=== PATIENT | male | born 1935 | race Caucasian/White ===

== ENCOUNTER → 2016-08-15 20:07 | Outpatient (CLI) | payer MEDICARE, OTHER ==
[2012-12-06] VITALS: BMI 32.5
== END | disposition home or self-care (01) ==
LOC: D.SLEEP 08-13 20:00
DX: G47.33 Obstructive sleep apnea (adult) (pediatric) (principal)

== ENCOUNTER → 2017-01-06 10:55 | Outpatient (CLI) | payer MEDICARE, OTHER ==
[2012-12-06] VITALS: BMI 32.5
[2017-01-06 11:57] LABS: BASOPHILS 0.3 % (0-2); IMMATURE GRANULOCYTES 0.2 % (0-5); LYMPHOCYTES 22.9 % (15-50); MCH 30.1 pg (26.0-34.0); MCHC 34.1 g/dL (31.0-37.0); MCV 88.4 fL (80.0-100.0); MEAN PLATELET VOLUME 9.5 fL (7.4-10.4); MONOCYTES 8.1 % (2-11); NEUTROPHILS 59.5 % (40-80); PLATELET COUNT 169 10x3/uL (130-400); RBC 4.98 10x6/uL (4.20-6.10); RDW 13.9 % (11.5-14.5); WBC 6.6 10x3/uL (4.8-10.8)
[2017-01-06 12:31] LABS: ALBUMIN 3.9 g/dL (3.4-5.0); ANION GAP 9.7 mmol/L (8-16); BILIRUBIN - TOTAL 0.71 mg/dL (0.2-1.3); CALCIUM 9.6 mg/dL (8.5-10.1); CARBON DIOXIDE 29.1 mmol/L (21.0-32.0); CHOL - HDL RATIO 3.6 ratio (2.3-4.9); CREATININE - SERUM 1.5 mg/dL (0.6-1.3); LDL-HDL RATIO 2.2 ratio (1.5-3.5); POTASSIUM - SERUM 3.8 mmol/L (3.5-5.1); PROTEIN - SERUM 7.6 g/dL (6.4-8.2); SCREENING PSA (YEARLY) 4.54 ng/mL (0.00-4.00)
== END | disposition home or self-care (01) ==
LOC: D.LAB 10:55
PROVIDERS: Family Medicine
DX: Z00.00 Encounter for general adult medical examination without abnormal findings (principal); I10 Essential (primary) hypertension; E11.9 Type 2 diabetes mellitus without complications; N40.0 Benign prostatic hyperplasia without lower urinary tract symptoms

== ENCOUNTER → 2017-08-29 08:59 | Outpatient (CLI) | payer MEDICARE, OTHER ==
[2012-12-06] VITALS: BMI 32.5
[2017-08-29 09:22] LABS: BASOPHILS 0.2 % (0-2); EOSINOPHILS 6.3 % (0-7); HEMATOCRIT 44.6 % (42.0-54.0); HEMOGLOBIN 15.2 g/dL (13.5-17.5); IMMATURE GRANULOCYTES 0.2 % (0-5); LYMPHOCYTES 15.9 % (15-50); MCHC 34.1 g/dL (31.0-37.0); MCV 88.1 fL (80.0-100.0); MONOCYTES 7.6 % (2-11); NEUTROPHILS 69.8 % (40-80); PLATELET COUNT 189 10x3/uL (130-400); RBC 5.06 10x6/uL (4.20-6.10); RDW 13.7 % (11.5-14.5); WBC 8.9 10x3/uL (4.8-10.8)
[2017-08-29 09:32] LABS: HEMOGLOBIN A1C 6.2 % (4.8-6.0)
[2017-08-29 09:50] LABS: ANION GAP 9.8 mmol/L (8-16); BILIRUBIN - TOTAL 0.49 mg/dL (0.2-1.3); CALCIUM 9.8 mg/dL (8.5-10.1); CARBON DIOXIDE 30.9 mmol/L (21.0-32.0); CREATININE - SERUM 1.7 mg/dL (0.6-1.3); POTASSIUM - SERUM 3.7 mmol/L (3.5-5.1); PROTEIN - SERUM 7.8 g/dL (6.4-8.2)
[2017-08-29 09:51] LABS: SCREENING PSA (YEARLY) 7.81 ng/mL (0.00-4.00)
== END | disposition home or self-care (01) ==
LOC: D.LAB 08:59
PROVIDERS: Family Medicine
DX: Z00.00 Encounter for general adult medical examination without abnormal findings (principal); E11.9 Type 2 diabetes mellitus without complications; Z12.5 Encounter for screening for malignant neoplasm of prostate

== ENCOUNTER → 2017-11-25 09:17 | Outpatient (CLI) | payer MEDICARE, OTHER ==
[2012-12-06] VITALS: BMI 32.5
[2017-11-25 09:42] LABS: BASOPHILS 0.2 % (0-2); EOSINOPHILS 6.2 % (0-7); HEMATOCRIT 41.2 % (42.0-54.0); HEMOGLOBIN 14.4 g/dL (13.5-17.5); IMMATURE GRANULOCYTES 0.1 % (0-5); LYMPHOCYTES 13.3 % (15-50); MCH 30.4 pg (26.0-34.0); MCV 87.1 fL (80.0-100.0); MEAN PLATELET VOLUME 8.6 fL (7.4-10.4); MONOCYTES 7.5 % (2-11); NEUTROPHILS 72.7 % (40-80); PLATELET COUNT 166 10x3/uL (130-400); RBC 4.73 10x6/uL (4.20-6.10); RDW 13.9 % (11.5-14.5); WBC 9.3 10x3/uL (4.8-10.8)
[2017-11-25 10:08] LABS: ANION GAP 10.8 mmol/L (8-16); CARBON DIOXIDE 29.2 mmol/L (21.0-32.0); CREATININE - SERUM 1.7 mg/dL (0.6-1.3)
== END | disposition home or self-care (01) ==
LOC: D.LAB 09:15
PROVIDERS: Family Medicine
DX: N19 Unspecified kidney failure (principal); E11.9 Type 2 diabetes mellitus without complications

== ENCOUNTER → 2018-12-06 12:47 | Outpatient (CLI) | payer MEDICARE, OTHER ==
[2012-12-06] VITALS: BMI 32.5
--- NOTE | ~2018-12-06 | EC ---
PATIENT:CHRISSIE RAO DATE OF SERVICE: 12/06/18 SEX: M MEDICAL RECORD: [id number] DATE OF : 37 LOCATION:D.FORMERLY [facility] AGE OF PATIENT: 83 ADMISSION DATE: 12/06/18 REFERRING PHYSICIAN: INTERPRETING PHYSICIAN: DANA VAZ MD ECHOCARDIOGRAM REPORT ECHO CHARGES 4 ECHO COMPLETE Date: 12/06/18 CLINICAL DIAGNOSIS: AFIB, HX OF PERICARDIAL EFFUSION ECHOCARDIOGRAPHIC MEASUREMENTS (adult normal given) AC root (d.<3.7cm) 3.2 cm LV Septum d (<1.2 cm> 1.6 cm Valve Excursion 1.8 cm LV Septum (systole) 2.0 cm Left Atria (s.<4.0cm> 4.8 cm LVPW d(<1.2cm) 1.5 cm RV (d.<2.3cm) 3.9 cm LVPW (sytole) 2.0 cm LV diastole(<5.6CM) 4.8 cm MV E-F(>70mm/sec) cm LV systole 2.7 cm LVOT Diameter 1.5 cm MV exc.(>10mm) 1.2 cm Est.ejection fraction (50-75%) % DOPPLER: LVIT cm/sec A 91.0 cm/sec E 103 cm/sec LA cm/sec RVSP 31 mmHg LVOT 113 cm/sec AOP1/2T m/s Asc. Ao 171 cm/sec RVOT 105 cm/sec RA cm/sec PA 125 cm/sec AV Gradient Peak 11.76mmHg AV Mean 5.84 mmHg AV Area 1.3 cm MV Gradient Peak 6.79 mmHg MV Mean 2.06 mmHg MV Area cm COMMENTS: Certified Adaptive Physical Educator: Miguel Angel GARCIA Vinyl Flooring Installer: 1 Dr. Vaz TAPE# PACS Pericardial Effusion Y DATE OF SERVICE: 12/06/2018 FINDINGS: 1. Left ventricular chamber size is within normal limits. Left ventricular systolic function is normal. Overall ejection fraction estimated at 60%. 2. Left atrium is enlarged at 4.8 cm. Right atrium and right ventricular chamber sizes are as well mildly dilated. 3. Valvular structures have normal structure and motion. 4. Doppler interrogation reveals mild mitral regurgitation, mild tricuspid regurgitation, no other valvular insufficiency or stenosis. Pulmonary systolic ECHOCARDIOGRAM REPORT [id number] CHRISSIE RAO pressure is estimated at 31 mmHg. 5. Pericardial effusion is present. This is small to moderate. Does not appear to be hemodynamically significant with no right atrial or right ventricular collapse at this time. It measures 1.3 cm on the right and 1.6 cm on the left. 6. No evidence of left ventricular thrombus. TRANSINT:[id number] Voice Confirmation ID: [id number] DOCUMENT ID: [id number] DANA VAZ MD CC: [id number] DICTATION DATE: 12/06/18 1546 BELL TIER: 12/06/18 1609 [facility] [address] [place] [place] [id number]
== END | disposition home or self-care (01) ==
LOC: D.HCCARDIO 12:47
PROVIDERS: ATTEND Internal Medicine Interventional Cardiology
DX: I48.91 Unspecified atrial fibrillation (principal)

== ENCOUNTER → 2019-05-09 09:36 | Outpatient (CLI) | payer MEDICARE, OTHER ==
[2012-12-06] VITALS: BMI 32.5
[2019-05-09 10:38] LABS: BASOPHILS 0.2 % (0-2); EOSINOPHILS 4.8 % (0-7); HEMATOCRIT 45.4 % (42.0-54.0); HEMOGLOBIN 15.4 g/dL (13.5-17.5); IMMATURE GRANULOCYTES 0.2 % (0-5); LYMPHOCYTES 9.8 % (15-50); MCHC 33.9 g/dL (31.0-37.0); MCV 88.3 fL (80.0-100.0); MEAN PLATELET VOLUME 8.8 fL (7.4-10.4); MONOCYTES 6.9 % (2-11); NEUTROPHILS 78.1 % (40-80); RBC 5.14 10x6/uL (4.20-6.10); RDW 14.3 % (11.5-14.5)
[2019-05-09 10:58] LABS: PLATELET COUNT 202 10x3/uL (130-400)
[2019-05-09 11:03] LABS: ALBUMIN 3.9 g/dL (3.4-5.0); ANION GAP 5.1 mmol/L (8-16); BILIRUBIN - TOTAL 0.65 mg/dL (0.2-1.3); CALCIUM 9.5 mg/dL (8.5-10.1); CARBON DIOXIDE 33.4 mmol/L (21.0-32.0); CHOL - HDL RATIO 3.9 ratio (2.3-4.9); CREATININE - SERUM 1.3 mg/dL (0.6-1.3); LDL-HDL RATIO 2.4 ratio (1.5-3.5); POTASSIUM - SERUM 3.5 mmol/L (3.5-5.1); PROTEIN - SERUM 7.8 g/dL (6.4-8.2); THYROID STIMULATING HORMONE 4.43 uIU/mL (0.36-3.74)
[2019-05-09 11:04] LABS: SCREENING PSA (YEARLY) 5.28 ng/mL (0.00-4.00)
[2019-05-09 13:16] LABS: APPEARANCE HAZY (CLEAR); COLOR YELLOW (YELLOW)
[2019-05-09 13:17] LABS: BACTERIA FEW /hpf (NEGATIVE); BILIRUBIN NEGATIVE (NEGATIVE); EPITHELIAL CELLS 0-5 /hpf (0-5); GLUCOSE NEGATIVE (NEGATIVE); KETONE NEGATIVE (NEGATIVE); MUCUS <1+ /lpf (NONE SEEN); NITRITE NEGATIVE (NEGATIVE); PROTEIN 1+ mg/dL (NEGATIVE); RED CELLS - URINE RARE /hpf (0-5); UROBILINOGEN NORMAL (NORMAL); WHITE CELLS - URINE 0-5 /hpf (NEGATIVE)
== END | disposition home or self-care (01) ==
LOC: D.LAB 09:36
PROVIDERS: ATTEND Family Medicine
DX: I10 Essential (primary) hypertension (principal); E11.9 Type 2 diabetes mellitus without complications; Z12.5 Encounter for screening for malignant neoplasm of prostate; Z00.01 Encounter for general adult medical examination with abnormal findings; N40.0 Benign prostatic hyperplasia without lower urinary tract symptoms

== ENCOUNTER → 2019-06-21 12:08 | Outpatient (CLI) | payer MEDICARE, OTHER ==
[2012-12-06] VITALS: BMI 32.5
--- NOTE | ~2019-06-21 | EC ---
PATIENT:CHRISSIE RAO DATE OF SERVICE: 06/21/19 SEX: M MEDICAL RECORD: [id number] DATE OF : 37 LOCATION:D.[facility] AGE OF PATIENT: 84 ADMISSION DATE: 06/21/19 REFERRING PHYSICIAN: INTERPRETING PHYSICIAN: DANA VAZ MD ECHOCARDIOGRAM REPORT ECHO CHARGES 4 ECHO COMPLETE Date: 06/21/19 CLINICAL DIAGNOSIS: ATRIAL FIB/FLUTTER, CARDIAC CLEARENCE ECHOCARDIOGRAPHIC MEASUREMENTS (adult normal given) AC root (d.<3.7cm) 3.4 cm LV Septum d (<1.2 cm> 1.6 cm Valve Excursion 1.6 cm LV Septum (systole) 2.3 cm Left Atria (s.<4.0cm> 3.9 cm LVPW d(<1.2cm) 2.0 cm RV (d.<2.3cm) 4.0 cm LVPW (sytole) 2.1 cm LV diastole(<5.6CM) 4.0 cm MV E-F(>70mm/sec) cm LV systole 1.7 cm LVOT Diameter 2.0 cm MV exc.(>10mm) 1.8 cm Est.ejection fraction (50-75%) % DOPPLER: LVIT cm/sec A 68.0 cm/sec E 132.0 cm/sec LA cm/sec RVSP 35 mmHg LVOT 169 cm/sec AOP1/2T m/s Asc. Ao 203 cm/sec RVOT 135 cm/sec RA cm/sec PA 150 cm/sec AV Gradient Peak 16.53mmHg AV Mean 9.59 mmHg AV Area 2.9 cm MV Gradient Peak 7.43 mmHg MV Mean 1.72 mmHg MV Area cm COMMENTS: Strategic Business Development: 2 YONIS GARCIA Wetlands Conservation Laborer: 1 Dr. Vaz TAPE# PACS Pericardial Effusion Y DATE OF SERVICE: FINDINGS: 1. Left ventricular chamber size is within normal limits. Left ventricular systolic function is normal at 55%. 2. Left atrium is upper limits of normal at 3.9 cm. Right atrium and right ventricular chamber sizes are mildly dilated. 3. Valvular structures have normal structure and motion. 4. Doppler interrogation reveals mild tricuspid regurgitation, no other valvular insufficiency or stenosis. Pulmonary systolic pressure estimated at 35 ECHOCARDIOGRAM REPORT [id number] CHRISSIE RAO mmHg. 5. Moderate pericardial effusion is present. No evidence of right atrial or right ventricular collapse. This is actually unchanged from previous echoes. This pericardial effusion does appear to be chronic. TRANSINT:[id number] Voice Confirmation ID: [id number] DOCUMENT ID: [id number] DANA VAZ MD CC: [id number] DICTATION DATE: 06/22/19 1044 ACETYLENE TORCH SOLDERER: 06/22/19 1109 DEP CLI 06/21/19 [place] [id number] [place] [id number]
== END | disposition home or self-care (01) ==
LOC: D.HCCECHO 12:08
PROVIDERS: ATTEND Internal Medicine Interventional Cardiology
DX: I48.91 Unspecified atrial fibrillation (principal)

== ENCOUNTER 2019-06-29 09:54 | Outpatient (CLI) | payer MEDICARE, OTHER ==
[~2019-06-29] VITALS: Ht 188 cm; Wt 88.6 kg
--- NOTE | ~2019-06-29 | OP ---
PATIENT NAME: CHRISSIE ARO MEDICAL RECORD: [id number] :37 LOCATION:D.CAT ADMISSION DATE: SURGEON: DANA GUEVARA MD DATE OF OPERATION: 06/29/2019 PROCEDURE: DC cardioversion. INDICATION: Atrial fibrillation. PROCEDURE IN DETAIL: IV conscious sedation was per anesthesia. He received 1 shock restoring sinus rhythm. OVERALL IMPRESSION: Successful DC cardioversion from atrial fibrillation to sinus rhythm. TRANSINT:[id number] Voice Confirmation ID: [id number] DOCUMENT ID: [id number] DANA GUEVARA MD CC: [id number] DICTATION DATE: 06/29/19 1337 FLUME TENDER: 06/29/191931 DEP CLI 06/29/19 [facility] [address] [place] [id number]
--- NOTE | ~2019-06-29 | HEMODYNAMI ---
PATIENT:CHRISSIE RAO MEDICAL RECORD: [id number] : 37 LOCATION:D.CAT ADMISSION DATE: 06/29/19 Generatedon:06/29/201913:22 Patient name: CHRISSIE RAO Patient #: [id number] SSN: : 1935 Date of study: 06/29/2019 Page: Of Hemodynamic Procedure Report Patient Data Patient Demographics Procedure consent was obtained First Name: CHRISSIE Gender: Male Last Name: JALEN : 1935 Middle Initial: F Age: 84 year(s) Patient #: [id number] Race: Unknown Additional ID: [id number] Contact details Address: [address] [place] [address] State: [place] City: [place] Zip code: [address] Past Medical History Allergies Allergen Reaction Date Comments Reported Other allergy 06/29/2019 CIPRO, PROCARDIA, SULFA, TOVIAZ Admission Admission Data Admission Date: 06/29/2019 Admission Time: 9:54 Height (in.): 72 BSA: 2.15 (m2) Height (cm.): 182.88 BMI: 27.8 (kg/m2) Weight (lbs.): 205 Weight (kg.): 92.99 Lab Results Lab Result Date: 06/29/2019 Lab Result Time: 0:00 Biochemistry Name Units Result Min Max BUN mg/dl 23 --(----)-* 7 18 Creatinine mg/dl 1.4 --(----)*- 0.6 1.3 eGFR ml/min 51 *-(----)-- 90 120 NONAFRICAN CBC Name Units Result Min Max Hematocrit % 41.9 -*(----)-- 42 54 Hemoglobin g/dl 13.9 --(*---)-- 13.5 17.5 Procedure Procedure Types Cath Procedure Diagnostic Procedure Cardioversion External Procedure Description Procedure Date Procedure Date: 06/29/2019 Procedure Start Time: 13:09 Procedure End Time: 13:21 Procedure Staff Name Function Roberto Vaz MD Performing Physician Denisse Gold RT Monitor Gladis Ward RT Solution Professional David Forte RN Nurse Max South MD Additional personnel Procedure Data Cath Procedure Estimated blood loss: 0 ml Procedure Complications No complications Procedure Medications Medication Administration Route Dosage 0.9% NaCl I.V. 100 ml/hr Oxygen etCO2 Nasal cannula 2 l/min Refer to Anesthesia Notes for Sedation Medications Hemodynamics Rest BSA: 2.15 (m2) HGB: 13.9 (g/dl) O2 Consumption: Estimated: 226.74 (ml/min) O2 Consumption indexed: Estimated:105.46 (ml/min/m) Heart Rate: 48 (bpm) Snapshots Pre Cath Intra NCS Post Cath Vital Signs Time Heart Resp SPO2 etCO2 NIBP (mmHg) Rhythm Pain Sedation Rate (ipm) (%) (mmHg) Status Level (bpm) 13:02:13 47 13 96 23.8 144/76(128) A-Flutter 0 (11) 10(A) , No pain 13:06:35 47 11 100 29 158/72(135) A-Flutter 0 (11) 10(A) , No pain 13:10:53 45 14 100 24.6 145/69(132) A-Flutter 0 (11) 8(A) , No pain 13:15:13 53 17 91 0 144/79(101) NSR 0 (11) 9(A) , No pain 13:19:33 54 13 91 8.9 133/66(108) NSR 0 (11) 9(A) , No pain Medications Time Medication Route Dose Verified Delivered Reason Notes Effective ness by by 13:03:49 0.9% NaCl I.V. 100 David David Per ml/hr Reanna Forte physician RN RN 13:04:13 Oxygen etCO2 2 David David for low Nasal l/min Reanna Forte 02 sats cannula RN RN 13:10:00 Refer to David Hernandez for Anesthesia Reanna Forte sedation Notes for RN RN Sedation Medications Procedure Log Time Note 12:49:33 Informed consent obtained and on chart 12:50:13 Gladis Ward RT(R) (CV) sent for patient. Start room use. 12:50:15 Procedure Status Elective Heart Cath (OP). 12:50:16 Time tracking: Regular hours (M-F 7:00 - 5:00) 12:50:20 Plan of Care:Hemodynamics will remain stable., Cardiac rhythm will remain stable., Comfort level will be maintained., Respiratory function will remain adequate., Patient/ family verbilizes understanding of procedure., Procedure tolerated without complication., Recovers from procedure without complications.. 12:51:05 H&P Date Dictated: 06/26/2019 Within 30 days and on chart., H&P Addendum completed by physician on day of procedure. (MUST COMPLETE FOR ALL OUTPATIENTS). 12:51:23 Patient allergic to Other allergyCIPRO, PROCARDIA, SULFA, TOVIAZ 12:51:32 Patient Weight : 205 lbs 12:51:40 Patient Height : 72 inches 12:54:14 Lab Result : BUN 23 mg/dl 12:54:14 Lab Result : eGFR NONAFRICAN 51 ml/min 12:54:14 Lab Result : Creatinine 1.4 mg/dl 12:54:14 Lab Result : Hemoglobin 13.9 g/dl 12:54:14 Lab Result : Hematocrit 41.9 % 12:56:12 Patient arrived from Pre/Post Procedure Room to [facility] 1. Patient remains on bed/stretcher for procedure. 12:56:13 Warm blankets applied, and agueda hugger turned on for patient comfort. 12:56:13 Correct patient and procedure confirmed by team. 12:56:14 ECG and BP/O2 sat monitors applied to patient. 13:00:27 Max South MD present and monitoring patient for TIVA. 13:00:56 Pre-procedure instructions explained to patient. 13:00:56 Pre-op teaching completed and patient verbalized understanding. 13:00:59 Full Disclosure recording started 13:01:09 Quick Combo opened to sterile field. 13:01:10 Vital chart was started 13:01:15 Baseline sample Acquired. 13:01:20 Rhythm: atrial flutter 13:01:33 Family in patients room. 13:01:35 Patient NPO since Midnight. 13:01:36 Is the patient allergic to Iodine/contrast media? No. 13:01:39 Is patient on blood thinner?Yes 13:01:43 ACC The patient was administered the following blood thiners within the last 24 hours: Xarelto 13:01:46 Patient diabetic? No. 13:01:56 Previous problem with sedation/anesthesia? No ? 13:01:58 Snore? Yes 13:02:00 Sleep apnea? Yes 13:02:01 Deviated septum? No 13:02:02 Opens mouth fully? Yes 13:02:03 Sticks out tongue? Yes 13:02:05 Airway obstruction? No ? 13:02:09 Dentures? No ? 13:02:13 Patient pain scale 0/10 ?. 13:02:19 IV patent on arrival in left forearm with 0.9% NaCl at [facility]. 13:02:21 Lab results completed and on chart. 13::27 Alarms reviewed by R. N. 13::27 Sharps counted by scrub and verified by R.N. 13:03:49 0.9% NaCl 100 ml/hr I.V. was administered by David Forte RN; Per physician; Verbal order read back and verified. 13:04:13 Oxygen 2 l/min etCO2 Nasal cannula was administered by David Forte RN; for low 02 sats; Verbal order read back and verified. 13:04:17 Physician paged 13:09:24 Physician arrived 13::27 --------ALL STOP TIME OUT------ 13::28 Final Timeout: patient, procedure, and site verified with staff and physician. All members of the team are in agreement. 13:09:35 Physical assessment completed. ASA score P 2 - A patient with mild systemic disease as per Roberto Vaz MD. 13:09:39 Sedation plan: TIVA Medication:Propofol 13:10:00 Refer to Anesthesia Notes for Sedation Medications was administered by David Forte RN; for sedation; Verbal order read back and verified. 13:10:00 Procedure started. 13:10:04 ------Cardioversion------ 13:10:41 Quick combo pads placed on patients chest and back. 13:10:44 Defibrillator synced and charged to 275 Joules. 13:10:54 Shock delivered. 13:11:17 Patient cardioverted to sinus bradycardia. 13:11:25 Procedure ended.(Physican Out) 13:13:21 Post-procedure physical assessment completed. ASA score P 2 - A patient with mild systemic disease as per Roberto Vaz MD. 13:13:34 Post procedure rhythm: sinus rhythm 13:13:42 Estimated blood loss: 0 ml 13:13:44 Post procedure instruction explained to patient.Patient verbalizes understanding. 13:13:44 Patient needs reinforcement of post procedure teaching. 13:14:32 Procedure and supply charges have been captured, reviewed, submitted and are correct. 13:14:35 Procedure Complication : No complications 13:15:35 Operative report dictated upon procedure completion. 13:15:35 See physician's report for complete and final results. 13:16:57 Report given to Pre/Post Procedure Room. 13:17:00 Patient transfered to Pre/Post Procedure Room with Bed. 13:21:05 Vital chart was stopped 13:21:07 Procedure ended. 13:21:07 Full Disclosure recording stopped 13:21:10 End room use (Document Last) 13:21:21 End room use (Document Last) 13:21:38 End room use (Document Last) Device Usage Item Manufacture Quantity Catalog Hospital Part Current Minimal Lot# / Name Number Charge Number Stock Stock Seri al# Code [facility] [employer] [id number] Combo Signature Audit [place] Stage Time Signature Unsigned Intra-Procedure 06/29/2019 Denisse Gold 1:21:21 PM RT(R) Intra-Procedure 06/29/2019 David 1:21:38 PM Reanna HOUSE Intra-Procedure 06/29/2019 Roberto Vaz 1:22:19 PM [facility] [address] [place] [address]
[2019-06-29] MEDS ORDERED: XARELTO20 MG PO (10:38)
[2019-06-29] MEDS ORDERED: MACROBID100 MG PO (10:38)
[2019-06-29] MEDS ORDERED: CATAPRES0.1 MG PO (10:39)
[2019-06-29] MEDS ORDERED: NORVASC10 MG PO (10:39)
[2019-06-29] MEDS ORDERED: K-DUR20 MEQ PO (10:40)
[2019-06-29] MEDS ORDERED: BETAPACE 80 MG80 MG PO (10:40)
[2019-06-29] MEDS ORDERED: LASIX40 MG PO (10:40)
[2019-06-29] MEDS ORDERED: XALATAN 0.0052.5 ML EACH EYE (10:41)
[2019-06-29] MEDS ORDERED: DORZOLAMIDE-TI1 EACH EACH EYE (10:41)
[2019-06-29] MEDS ORDERED: ALPHAGAN 0.2%5 ML EACH EYE (10:41)
[2019-06-29] MEDS ORDERED: GLUCOTROL 5 MG T5 MG PO (10:41)
[2019-06-29] MEDS ORDERED: BAYER CHEWABLE81 MG PO (10:42)
[2019-06-29] MEDS ORDERED: CALCIUM 600 +1 EAC3 PO (10:42)
[2019-06-29 11:11] VITALS: BP 154/64; Ht 188 cm; Wt 88.6 kg
[2019-06-29 11:23] LABS: ANION GAP 9.1 mmol/L (8-16); CALCIUM 9.4 mg/dL (8.5-10.1); CARBON DIOXIDE 29.9 mmol/L (21.0-32.0); CREATININE - SERUM 1.4 mg/dL (0.6-1.3)
[2019-06-29 11:35] LABS: BASOPHILS 0.2 % (0-2); EOSINOPHILS 4.2 % (0-7); HEMATOCRIT 41.9 % (42.0-54.0); HEMOGLOBIN 13.9 g/dL (13.5-17.5); IMMATURE GRANULOCYTES 0.2 % (0-5); LYMPHOCYTES 9.1 % (15-50); MCH 28.9 pg (26.0-34.0); MCHC 33.2 g/dL (31.0-37.0); MCV 87.1 fL (80.0-100.0); MONOCYTES 8.1 % (2-11); NEUTROPHILS 78.2 % (40-80); RBC 4.81 10x6/uL (4.20-6.10); RDW 13.8 % (11.5-14.5)
[2019-06-29 11:37] LABS: INR 3.05 (0.85-1.17); PROTIME 30.8 SECONDS (11.6-15.0)
[2019-06-29 11:53] LABS: PLATELET COUNT 277 10x3/uL (130-400)
--- NOTE | 2019-06-29 13:25 | NUR ---
PT RECEIVED VIA STRETCHER FROM CALL CENTER SUPPORT REPRESENTATIVE POST SUCCESSFUL CARDIOVERSION. PT AWAKE AND ALERT, DENIES PAIN OR DISCOMFORT. IV PATENT INFUSING VIA ORDERS. PT PLACED ON GANG HEMSTITCHING MACHINE OPERATOR AND O2 AT 2L/NC. HR SB RATE 59, B/P 144/69, RR 16 SAT 98. SMALL REDDENED AREA TO UPPER CHEST AREA. AT BEDSIDE, CALL LIGHT IN REACH
--- NOTE | 2019-06-29 13:50 | NUR ---
PT SITTING UP AND VISITING W FAMILY. HR REMAINS NSR RATE 62. PT DENIES PAIN OR NEEDS AT THIS TIME. CALL LIGHT IN REACH
--- NOTE | 2019-06-29 14:35 | NUR ---
DISCHARGE INSTRUCTIONS REVIEWED W PT AND , BOTH VERBALIZED UNDERSTANDING. IV REMOVED W CATH INTACT, COBAN APPLIED. MONITORS AND O2 REMOVED. [id number] PT UP TO DRESS FOR DISCHARGE.
--- NOTE | 2019-06-29 14:50 | NUR ---
PT DISCHARGED VIA WC TO IN PRIVATE VEHICLE. PT HAD ALL BELONGINGS AND DISCHARGE INFORMATION
== END 2019-06-29 14:55 | disposition home or self-care (01) ==
LOC: D.CATH 09:54
PROVIDERS: ATTEND Internal Medicine Interventional Cardiology
DX: I48.0 Paroxysmal atrial fibrillation (principal); R06.02 Shortness of breath; R00.2 Palpitations; I10 Essential (primary) hypertension; I25.10 Atherosclerotic heart disease of native coronary artery without angina pectoris; R06.00 Dyspnea, unspecified; R42 Dizziness and giddiness; I34.0 Nonrheumatic mitral (valve) insufficiency; I47.2 Ventricular tachycardia; R53.83 Other fatigue

== ENCOUNTER → 2019-08-17 11:18 | Outpatient (CLI) | payer MEDICARE, OTHER ==
[2019-06-29 11:11] VITALS: BMI 25.1
[~2019-08-17 11:18] MED LIST: ALPHAGAN 0.2%5 ML EACH EYE; BAYER CHEWABLE81 MG PO; BETAPACE 80 MG80 MG PO; CALCIUM 600 +1 EAC3 PO; CATAPRES0.1 MG PO; DORZOLAMIDE-TI1 EACH EACH EYE; GLUCOTROL 5 MG T5 MG PO; K-DUR20 MEQ PO; LASIX40 MG PO; MACROBID100 MG PO; NORVASC10 MG PO; XALATAN 0.0052.5 ML EACH EYE; XARELTO20 MG PO
== END | disposition home or self-care (01) ==
LOC: D.RAD 11:18
PROVIDERS: ATTEND Family Medicine
DX: R05 Cough (principal)

== ENCOUNTER → 2019-09-14 08:46 | Outpatient (CLI) | payer OTHER ==
[2019-08-23 17:27] VITALS: BMI 23.5
[~2019-09-14 08:46] MED LIST changes: +ELIQUIS5 MG PO; +PULMICORT0.5 MG/21 UPD
[2019-09-14 09:12] LABS: CREATININE - SERUM 1.4 mg/dL (0.6-1.3)
== END | disposition home or self-care (01) ==
LOC: D.CT 08:46
PROVIDERS: ATTEND Internal Medicine Pulmonary Disease
DX: I26.99 Other pulmonary embolism without acute cor pulmonale (principal)

== ENCOUNTER 2019-09-26 09:45 | Outpatient (CLI) | payer OTHER ==
[~2019-09-26] VITALS: Ht 188 cm; Wt 86.2 kg
[2019-09-26 10:11] LABS: HEMATOCRIT 46.7 % (42.0-54.0); HEMOGLOBIN 15.5 g/dL (13.5-17.5); MCH 28.5 pg (26.0-34.0); MCHC 33.2 g/dL (31.0-37.0); MEAN PLATELET VOLUME 8.9 fL (7.4-10.4); PLATELET COUNT 247 10x3/uL (130-400); RBC 5.43 10x6/uL (4.20-6.10); RDW 14.9 % (11.5-14.5); WBC 20.2 10x3/uL (4.8-10.8)
[2019-09-26 10:18] LABS: APTT 29.5 SECONDS (22.8-39.4); INR 1.11 (0.85-1.17); PROTIME 14.3 SECONDS (11.6-15.0)
[2019-09-26 10:24] LABS: ANION GAP 10.6 mmol/L (8-16); CARBON DIOXIDE 32.6 mmol/L (21.0-32.0); CREATININE - SERUM 1.4 mg/dL (0.6-1.3); POTASSIUM - SERUM 4.2 mmol/L (3.5-5.1)
[2019-09-26 10:52] VITALS: BP 159/81; Ht 188 cm; Wt 86.2 kg
[2019-09-26 13:59] LABS: EOSINOPHILS 2 % (0-7); LYMPHOCYTES 8 % (15-50); MONOCYTES 5 % (2-11); NEUTROPHILS 81 % (40-80); PLATELET ESTIMATE NORMAL
[2019-09-26 14:00] LABS: ROULEAUX OCC
--- NOTE | 2019-09-26 14:00 | NUR ---
1350 ARRIVED TO ROOM SITTING UP IN BED AND MILD COUGH OCCASIONALLY. NO SOB. ON O2 2LITER NC. MICHAELS TO LEG BAG. APPROX 150 IN BAG AYDIN CLEAR URINE. PT INSTRUCTED ON NPO STATUS.
--- NOTE | 2019-09-26 15:10 | NUR ---
[address] CORDOVA TO DO THE THORACENTESIS. CONCENT OBTAINED
--- NOTE | 2019-09-26 16:20 | NUR ---
1550 THORACENTESIS DONE AT BEDSIDE BY DR CORDOVA AND HIS NURSE. 1550ML OF FLUID REMOVED FROM LEFT LUNG. 1610 PROCEDURE ENDED AND SPECIMEN COLLECTED AND LABELED AND SENT TO LAB. 1610 PORTABLE CHEST XRAY DONE AND DR SAW RESULTS ON XRAY AND STATED PT CAN GO HOME. RECIEVED A REGULAR TRAY OF FOOD. NO SOB NOTED AND NOT COUGHING UP BLOOD. 1630 IV REMOVED AND INSTRUCTIONS GIVEN
--- NOTE | 2019-09-26 16:52 | NUR ---
1650 IV REMOVED AND INSTRUCTIONS GIVEN.
[2019-09-26 16:56] LABS: PROTEIN - BODY FLUID 4.4 G/DL
--- NOTE | 2019-09-26 17:00 | NUR ---
BEDSIDE THORACENTESIS DONE BY DR. CORDOVA. 1550 MLS OF RED FLUID DRAINED FROM PT. PT CHUY WELL
--- NOTE | 2019-09-26 17:39 | NUR ---
1705 NO SOB NOTEDO2 SAT 96% ON RA.
[2019-09-27 18:09] LABS: ACID FAST SMEAR Negative (()); AFB SPECIMEN PROCESSING Concentration (())
== END 2019-09-26 17:05 | disposition home or self-care (01) ==
LOC: D.OPS 09:45
PROVIDERS: Anesthesiology; ATTEND Internal Medicine Pulmonary Disease
DX: R91.8 Other nonspecific abnormal finding of lung field (principal); J90 Pleural effusion, not elsewhere classified

== ENCOUNTER 2019-10-16 12:21 | Inpatient (IN) | payer MEDICARE, OTHER ==
[~2019-10-16] VITALS: Ht 188 cm; Wt 81.8 kg
[2019-10-16 16:48] VITALS: BP 217/85; BMI 23.1
[2019-10-16 16:55] VITALS: BP 217/85
[2019-10-16 17:21] VITALS: Ht 188 cm; Wt 81.8 kg
[2019-10-16 17:57] LABS: BASOPHILS 0.2 % (0-2); EOSINOPHILS 6.1 % (0-7); HEMATOCRIT 43.7 % (42.0-54.0); HEMOGLOBIN 13.8 g/dL (13.5-17.5); LYMPHOCYTES 6.5 % (15-50); MCH 27.8 pg (26.0-34.0); MCHC 31.6 g/dL (31.0-37.0); MCV 87.9 fL (80.0-100.0); MEAN PLATELET VOLUME 8.7 fL (7.4-10.4); MONOCYTES 6.6 % (2-11); NEUTROPHILS 79.6 % (40-80); PLATELET COUNT 294 10x3/uL (130-400); RBC 4.97 10x6/uL (4.20-6.10); RDW 14.8 % (11.5-14.5); WBC 19.8 10x3/uL (4.8-10.8)
[2019-10-16 18:18] LABS: APTT 32.9 SECONDS (22.8-39.4); INR 1.27 (0.85-1.17); PROTIME 15.8 SECONDS (11.6-15.0)
[2019-10-16 18:37] LABS: ALBUMIN 3.1 g/dL (3.4-5.0); ANION GAP 13.2 mmol/L (8-16); BILIRUBIN - TOTAL 0.31 mg/dL (0.2-1.3); CALCIUM 9.1 mg/dL (8.5-10.1); CARBON DIOXIDE 30.6 mmol/L (21.0-32.0); CREATININE - SERUM 1.2 mg/dL (0.6-1.3); POTASSIUM - SERUM 3.8 mmol/L (3.5-5.1); PROTEIN - SERUM 6.6 g/dL (6.4-8.2)
[2019-10-16 20:30] VITALS: BP 160/85
[2019-10-16 21:00] VITALS: BP 160/85
[2019-10-17 00:30] VITALS: BP 153/72
[2019-10-17 04:30] VITALS: BP 161/82
[2019-10-17 06:08] LABS: HEPATITIS C ANTIBODY 0.2 S/CO RAT (0.0-0.9)
[2019-10-17 08:00] VITALS: BP 181/85
[2019-10-17 12:57] VITALS: BP 131/77
[2019-10-17 17:10] VITALS: BP 168/88
[2019-10-17 17:47] LABS: PROTEIN - BODY FLUID 4.3 G/DL
[2019-10-17 20:00] VITALS: BP 173/83
--- NOTE | 2019-10-17 21:31 | MORECARE ---
CASE MANAGEMENT DISCHARGE SUMMARY PATIENT: CHRISSIE RAO UNIT: [id number] ADM DATE: 10/16/19 AGE: 84 : 36 SEX: M ROOM/BED: D.2235 AUTHOR: ALEYDA,DOC PHYSICIAN: REFERRING PHYSICIAN: JORGE A PASTOR MD DATE OF SERVICE: 10/17/19 Discharge Plan Patient Name: CHRISSIE RAO Facility: [facility]:[place] : 1935 Planned Disposition: Home Anticipated Discharge Date: Discharge Date: Expected LOS: Initial Reviewer: [email or web address] Initial Review Date: 10/16/2019 Generated: 10/17/19 10:30 pm Comments DCP- Discharge Planning Updated by [email or web address]: Airam Bradley on 10/17/19 8:[address] Patient Name: CHRISSIE RAO Admission Status: Elective Accout number: [id number] Admission Date: 10-16-2019 : 1935 Admission Diagnosis:DIFFUSE LARGE B-CELL LYMPHOMA, INTRATHORACIC LYMPH NODE Attending: JORGE A PASTOR Current LOS: 1 Anticipated DC Date: Planned Disposition: Home Primary Insurance: MEDICARE A & B Discharge Planning Comments: CM met with patient to complete initial dc planning assessment. CM educated patient on the CM role and verbal consent given by patient to complete assessment. Patient lives at home with spouse. At discharge patient plans to return home and feels this is a safe discharge. CM discussed availability of home health, rehab services, and medical equipment. Patient denied known discharge needs at this time. CM will continue to follow and will assist as needed with dc plans/needs. Scenic Arts Supervisor: Airam Bradley DCPIA - Discharge Planning Initial Assessment Updated by [email or web address]: Airam Bradley on 10/17/19 9:27 pm * Is the patient Alert and Oriented? Yes * How many steps to enter\exit or inside your home? * PCP addis * Pharmacy [facility] - hsv * Preadmission Environment Home with Family * ADLs Independent * Other Equipment walker, cane * List name and contact numbers for known caregivers / representatives who currently or will assist patient after discharge: Maylin Grimm - spouse- [phone] * Verbal permission to speak to the caregivers and representatives has been obtained from the patient. Yes * Community resources currently utilized None * Additional services required to return to the preadmission environment? No * Can the patient safely return to the preadmission environment? Yes * Has this patient been hospitalized within the prior 30 days at any hospital? No Patient Name: CHRISSIE RAO Page 66933 at 2131 All edits/amendments must be made on the electronic document DICTATION DATE: 10/17/192129 ASSISTANT FIELD HOCKEY COACH: ANGY 10/17/192129 RPT#: [id number] DC DATE: STATUS: ADM IN [facility] [address] [place] [address] END OF REPORT
[2019-10-18 07:57] VITALS: BP 163/75
[2019-10-18 12:32] VITALS: BP 156/88
[2019-10-18 13:09] VITALS: BP 150/75
[2019-10-18] MEDS ORDERED: PROMETHAZINE W473 ML PO (13:30)
[2019-10-18 13:39] VITALS: BP 140/73
--- NOTE | 2019-10-18 19:08 | MORECARE ---
CASE MANAGEMENT DISCHARGE SUMMARY PATIENT: CHRISSIE RAO UNIT: [id number] ADM DATE: 10/16/19 AGE: 84 : 36 SEX: M ROOM/BED: D.2235 AUTHOR: ALEYDA,DOC PHYSICIAN: REFERRING PHYSICIAN: JORGE A PASTOR MD DATE OF SERVICE: 10/18/19 Discharge Plan Patient Name: CHRISSIE RAO Facility: [facility]:[place] : 1935 Planned Disposition: Home Anticipated Discharge Date: Discharge Date: 10/18/2019 Expected LOS: Initial Reviewer: [email or web address] Initial Review Date: 10/16/2019 Generated: 10/18/19 8:07 pm Comments DCP- Discharge Planning Updated by [email or web address]: Airam Bradley on 10/17/19 8:[address] Patient Name: CHRISSIE RAO Admission Status: Elective Accout number: [id number] Admission Date: 10-16-2019 : 1935 Admission Diagnosis:DIFFUSE LARGE B-CELL LYMPHOMA, INTRATHORACIC LYMPH NODE Attending: JORGE A PASTOR Current LOS: 1 Anticipated DC Date: Planned Disposition: Home Primary Insurance: MEDICARE A & B Discharge Planning Comments: CM met with patient to complete initial dc planning assessment. CM educated patient on the CM role and verbal consent given by patient to complete assessment. Patient lives at home with spouse. At discharge patient plans to return home and feels this is a safe discharge. CM discussed availability of home health, rehab services, and medical equipment. Patient denied known discharge needs at this time. CM will continue to follow and will assist as needed with dc plans/needs. Hand Molder Meat: Airam Bradley DCPIA - Discharge Planning Initial Assessment Updated by [email or web address]: Airam Bradley on 10/17/19 9:27 pm * Is the patient Alert and Oriented? Yes * How many steps to enter\exit or inside your home? * PCP addis * Pharmacy [facility] - hsv * Preadmission Environment Home with Family * ADLs Independent * Other Equipment walker, cane * List name and contact numbers for known caregivers / representatives who currently or will assist patient after discharge: Maylin Grimm - spouse- [phone] * Verbal permission to speak to the caregivers and representatives has been obtained from the patient. Yes * Community resources currently utilized None * Additional services required to return to the preadmission environment? No * Can the patient safely return to the preadmission environment? Yes * Has this patient been hospitalized within the prior 30 days at any hospital? No Last DP export: 10/17/19 8:31 pm Patient Name: CHRISSIE RAO Page 18670 at 1908 All edits/amendments must be made on the electronic document DICTATION DATE: 10/18/191906 ENVIRONMENTAL SERVICES FLOOR TECH: ANGY 10/18/191906 RPT#: [id number] DC DATE:10/18/19 STATUS: DIS IN [facility] [address] [place] [address] END OF REPORT
== END 2019-10-18 15:50 | disposition home or self-care (01) | DRG 841 ==
LOC: D.CT 12:21 → D.MS 15:44
PROVIDERS: Internal Medicine Hematology & Oncology; Internal Medicine Pulmonary Disease; ADMIT Family Medicine; ATTEND Family Medicine
PROC: 07DR3ZX Extraction of Iliac Bone Marrow, Percutaneous Approach, Diagnostic (ICD-10-PCS; 2019-10-16)
PROC: 0W9B30Z Drainage of Left Pleural Cavity with Drainage Device, Percutaneous Approach (ICD-10-PCS; principal; 2019-10-17)
DX: C83.32 Diffuse large B-cell lymphoma, intrathoracic lymph nodes (principal); I30.9 Acute pericarditis, unspecified; J90 Pleural effusion, not elsewhere classified; I27.82 Chronic pulmonary embolism; J91.0 Malignant pleural effusion; I48.0 Paroxysmal atrial fibrillation; I10 Essential (primary) hypertension; E11.9 Type 2 diabetes mellitus without complications; N40.0 Benign prostatic hyperplasia without lower urinary tract symptoms; G47.33 Obstructive sleep apnea (adult) (pediatric); E78.5 Hyperlipidemia, unspecified; J45.909 Unspecified asthma, uncomplicated; M19.91 Primary osteoarthritis, unspecified site; H40.9 Unspecified glaucoma; L40.9 Psoriasis, unspecified; Z86.718 Personal history of other venous thrombosis and embolism; I27.81 Cor pulmonale (chronic)

== ENCOUNTER 2019-10-31 06:05 | Day surgery (SDC) | payer MEDICARE, OTHER ==
[~2019-10-31] VITALS: Ht 188 cm; Wt 86.2 kg
[~2019-10-31 06:05] MED LIST changes: +PROMETHAZINE W473 ML PO
[2019-10-31 06:35] LABS: BASOPHILS 0.1 % (0-2); EOSINOPHILS 3.3 % (0-7); HEMATOCRIT 46.1 % (42.0-54.0); HEMOGLOBIN 14.3 g/dL (13.5-17.5); IMMATURE GRANULOCYTES 0.3 % (0-5); LYMPHOCYTES 4.3 % (15-50); MCH 27.1 pg (26.0-34.0); MCV 87.5 fL (80.0-100.0); MEAN PLATELET VOLUME 8.8 fL (7.4-10.4); MONOCYTES 5.7 % (2-11); NEUTROPHILS 86.3 % (40-80); PLATELET COUNT 276 10x3/uL (130-400); RBC 5.27 10x6/uL (4.20-6.10); RDW 14.6 % (11.5-14.5); WBC 18.9 10x3/uL (4.8-10.8)
[2019-10-31 07:00] LABS: ANION GAP 8.5 mmol/L (8-16); CALCIUM 9.7 mg/dL (8.5-10.1); CARBON DIOXIDE 32.4 mmol/L (21.0-32.0); CREATININE - SERUM 1.1 mg/dL (0.6-1.3); POTASSIUM - SERUM 3.9 mmol/L (3.5-5.1)
[2019-10-31 07:01] LABS: APTT 30.4 SECONDS (22.8-39.4); INR 1.15 (0.85-1.17); PROTIME 14.6 SECONDS (11.6-15.0)
[2019-10-31 07:14] VITALS: BP 150/75; Ht 188 cm; Wt 86.2 kg
[2019-10-31] MEDS ORDERED: HYDROCODON-ACE1 EAC7 PO (09:04)
--- NOTE | 2019-10-31 09:11 | NUR ---
SPOKE WITH MANAS IN INFECTION CONTROL-NO ISOLATION REQUIRED.
== END 2019-10-31 10:45 | disposition home or self-care (01) ==
LOC: D.PAN 06:05 → D.OPS 08:00 → D.PAN 10:45
PROVIDERS: Anesthesiology; ATTEND Surgery
DX: C85.90 Non-Hodgkin lymphoma, unspecified, unspecified site (principal); R91.8 Other nonspecific abnormal finding of lung field; R59.0 Localized enlarged lymph nodes; I25.10 Atherosclerotic heart disease of native coronary artery without angina pectoris; I48.91 Unspecified atrial fibrillation; I26.99 Other pulmonary embolism without acute cor pulmonale; J90 Pleural effusion, not elsewhere classified; G47.33 Obstructive sleep apnea (adult) (pediatric); E11.8 Type 2 diabetes mellitus with unspecified complications; Z86.718 Personal history of other venous thrombosis and embolism

== ENCOUNTER → 2019-11-12 12:24 | Outpatient (CLI) | payer MEDICARE, OTHER ==
[2019-10-31 07:14] VITALS: BMI 24.4
[~2019-11-12 12:24] MED LIST changes: +HYDROCODON-ACE1 EAC7 PO
== END | disposition home or self-care (01) ==
LOC: D.RAD 12:24
PROVIDERS: ATTEND Family Medicine
DX: R05 Cough (principal)

== ENCOUNTER 2020-02-05 11:55 | Outpatient (CLI) | payer MEDICARE, OTHER ==
[~2020-02-05] VITALS: Ht 188 cm; Wt 84.5 kg
[2020-02-05] MEDS ORDERED: NORVASC10 MG PO (15:00)
[2020-02-05] MEDS ORDERED: MULTI-DAY VITAM1 TAB PO (15:01)
[2020-02-05] MEDS ORDERED: [UNRECOGNIZED DRUG - OTHER] PO (15:04)
[2020-02-05] MEDS ORDERED: VALISONE 0.1 %15 GM TOPICAL (15:05)
[2020-02-05 15:15] VITALS: BP 178/86; Ht 188 cm; Wt 84.5 kg
--- NOTE | 2020-02-05 17:45 | NUR ---
1720 ULTRASOUND PERSONNAL HERE, MARKED PT. 1730 RESP. TECH HERE 1745 DR. CORDOVA HERE, VALUES EVALUATED BY ULTRASOUND. ASSISSTED WITH PROCEDURE BY Kenneth MCBRIDE.
--- NOTE | 2020-02-05 18:51 | NUR ---
175 PORT CXR ORDERED FOR POST THORACENTESIS 1758 XRAY HERE 180 XRAY DONE, DR. CORDOVA READ HIS XRAY, NO PNEUMOTHORAX, PT. WITH OCC COUGH. 1814 DR. TASHA ONEILL RELEASE OF PT NOW TO HOME. DIET LEMON SHAGELUK SERVED TO PT.
--- NOTE | 2020-02-05 18:55 | NUR ---
1830 PT STATES HE IS READY FOR RELEASE HOME. DISCHARGE INSTS. GIVEN, RELEASED IN , TITLE INSPECTOR HOME.
[2020-02-05 18:58] LABS: PROTEIN - BODY FLUID 3.9 G/DL
[2020-02-05 19:59] LABS: EOS BF 2 %; MACROPHAGES BF 8 %; MESOTHELIALS BF 1 %; NEUT - BF 6 %
[2020-02-07 18:09] LABS: ACID FAST SMEAR Negative (()); AFB SPECIMEN PROCESSING Concentration (())
== END 2020-02-05 18:30 | disposition home or self-care (01) ==
LOC: D.OPS 11:55 → D.RAD 11:55 → D.OPS 18:30
PROVIDERS: ATTEND Internal Medicine Pulmonary Disease
DX: J90 Pleural effusion, not elsewhere classified (principal); E11.9 Type 2 diabetes mellitus without complications; Z79.84 Long term (current) use of oral hypoglycemic drugs; I26.99 Other pulmonary embolism without acute cor pulmonale; R91.8 Other nonspecific abnormal finding of lung field; R59.0 Localized enlarged lymph nodes; G47.33 Obstructive sleep apnea (adult) (pediatric); I48.91 Unspecified atrial fibrillation; Z86.718 Personal history of other venous thrombosis and embolism; C85.10 Unspecified B-cell lymphoma, unspecified site

== ENCOUNTER → 2020-02-27 15:18 | Outpatient (CLI) | payer MEDICARE, OTHER ==
[2020-02-05 15:15] VITALS: BMI 23.9
[~2020-02-27 15:18] MED LIST changes: +MULTI-DAY VITAM1 TAB PO; +VALISONE 0.1 %15 GM TOPICAL; +[UNRECOGNIZED DRUG - OTHER] PO
== END | disposition home or self-care (01) ==
LOC: D.RAD 15:18
PROVIDERS: ATTEND Internal Medicine Pulmonary Disease
DX: R06.00 Dyspnea, unspecified (principal)